=== PATIENT | female | born 1980 | race Caucasian/White ===

== ENCOUNTER 2023-01-06 11:30 | Emergency (ER) | payer BC ==
[2023-01-06] MEDS ORDERED: diphenhydrAMINE HCL 25 MG CAPSULE (FP) PO ONE (11:42)
[2023-01-06] MEDS ORDERED: FAMOTIDINE 10 MG TABLET PO ONE (11:42)
[2023-01-06] MEDS ORDERED: FAMOTIDINE 20 MG TABLET ONE (11:45)
[2023-01-06] MEDS ORDERED: diphenhydrAMINE HCL 50 MG CAPSULE ONE (11:46)
[2023-01-06 12:01] VITALS: BP 120/88; PULSE 76; RESP 18; TEMP 98.3; BMI 27.3
== END 2023-01-06 13:08 | disposition home or self-care (01) ==
LOC: FER 11:30
DX: T63.441A Toxic effect of venom of bees, accidental (unintentional), initial encounter (principal); R05.9 Cough, unspecified; R07.0 Pain in throat
CPT/HCPCS: 99283-25